=== PATIENT | male | born 1985 | race Caucasian/White ===

== ENCOUNTER → 2017-04-26 | Outpatient (CLI) | payer MEDICAID | LOC: CIMAGING 15:14 | PROVIDERS: ATTEND Family Medicine | DX: M54.5 Low back pain (principal) | CPT/HCPCS: 72100-PO ==

== ENCOUNTER 2018-02-12 23:43 | Emergency (ER) | payer MEDICAID ==
--- NOTE | 2018-02-13 00:48 | EDPHY ---
H & P Stated Complaint: ingrown hair, skin infection Time Seen by Provider: 02/13/18 00:48 HPI/ROS: HPI CHIEF COMPLAINT: [ ] HISTORY OF PRESENT ILLNESS: [Need 4: Location, Duration, Severity, Quality, Context, Timing Modifying Factors, Associated S&S] Past Medical History: Past Surgical History: Social History: Family History: ROS REVIEW OF SYSTEMS: 10 Systems were reviewed and negative with the exception of the elements mentioned in the history of present illness. Exam Constitutional triage nursing summary reviewed, vital signs reviewed, awake/ alert. Eyes normal conjunctivae and sclera, EOMI, PERRLA. HENT normal inspection, atraumatic, moist mucus membranes, no epistaxis, neck supple/ no meningismus, no raccoon eyes. Respiratory clear to auscultation bilaterally, normal breath sounds, no respiratory distress, no wheezing. Cardiovascular rate normal, regular rhythm, no murmur, no edema, distal pulses normal. Gastrointestinal soft, non-tender, no rebound, no guarding, normal bowel sounds, no distension, no pulsatile mass. Genitourinary no CVA tenderness. Musculoskeletal no midline vertebral tenderness, full range of motion, no calf swelling, no tenderness of extremities, no meningismus, good pulses, neurovascularly intact. Skin pink, warm, & dry, no rash, skin atraumatic. Neurologic awake, alert and oriented x 3, AAOx3, moves all 4 extremities equally, motor intact, sensory intact, CN II-XII intact, normal cerebellar, normal vision, normal speech. Psychiatric normal mood/affect. Heme/Lymph/Immune no lymphadenopathy. Differential Diagnosis: Medical Decision Making: Re-evaluation: Source: Patient - Personal History Current Tetanus Diphtheria and Acellular Pertussis (TDAP): Unsure - Medical/Surgical History Hx Asthma: No Hx Chronic Respiratory Disease: No Hx Diabetes: No Hx Cardiac Disease: No Hx Renal Disease: No Hx Cirrhosis: No Hx Alcoholism: No Hx HIV/AIDS: No Hx Splenectomy or Spleen Trauma: No - Social History Smoking Status: Current every day smoker Constitutional: Initial Vital Signs Temperature (C) 36.9 C 02/12/18 23:55 Heart Rate 82 02/12/18 23:55 Respiratory Rate 20 02/12/18 23:55 Blood Pressure 141/69 H 02/12/18 23:55 O2 Sat (%) 98 02/12/18 23:55 Allergies/Adverse Reactions: No Known Allergies Allergy (Unverified 02/12/18 23:54) Home Medications: Medication Instructions Recorded Adderall 10 MG (*) 02/12/18 Suboxone 12 mg-3 mg Sl Film 02/12/18 Departure - Departure Referrals: Derrick Willson DO [Primary Care Provider] - As per Instructions
[2018-02-13] MEDS ORDERED: CEPHALEXIN 500 MG CAP PO ONE (00:54)
--- NOTE | 2018-02-13 00:57 | EDPHY ---
H & P Time Seen by Provider: 02/13/18 00:48 HPI/ROS: CHIEF COMPLAINT: Neck infection HISTORY OF PRESENT ILLNESS: Patient is 30-year-old male here with concern for ingrown here this become affected. He states he has been dealing with this for about 2 months. Yesterday he"dug around and they are"trying to get the ingrown hair out but was unsuccessful. Denies any fever or chills or neck stiffness. He has tried no description antibiotics yet. He has not been evaluated by his physician. He has no history of MRSA. He has no antibiotic allergies. ROS As detailed in HPI Smoking Status: Current every day smoker Physical Exam: General: Alert and oriented. Nontoxic appearing. No acute distress HEENT: Pupils PERRLA. No oral lesions. Cardiopulmonary: Regular rate and rhythm. No lower extremity edema Skin: [place] warm and dry. 2 x 2 cm area of erythema to the underside of the left chin. There is mild erythema but no fluctuance or induration or drainage. Muscle skeletal: Moving all 4 extremities. Equal strength in upper extremities and lower extremities. Ambulatory. Constitutional: Initial Vital Signs Temperature (C) 36.9 C 02/12/18 23:55 Heart Rate 82 02/12/18 23:55 Respiratory Rate 20 02/12/18 23:55 Blood Pressure 141/69 H 02/12/18 23:55 O2 Sat (%) 98 02/12/18 23:55 Allergies/Adverse Reactions: No Known Allergies Allergy (Unverified 02/12/18 23:54) Home Medications: Medication Instructions Recorded Adderall 10 MG (*) 02/12/18 Suboxone 12 mg-3 mg Sl Film 02/12/18 Cephalexin [Keflex (*)] 500 mg PO TID #21 cap 02/13/18 Mupirocin 2% [Bactroban 2%] 22 gm TP BID 7 Days #1 oint 02/13/18 Medical Decision Making ED Course/Re-evaluation: 32-year-old male here with what appears to be folliculitis. Prescribed him Keflex to be taken for the next week along with topical Bactroban. He is agreeable with this plan. No evidence of abscess this time. Departure - Departure Disposition: Home, Routine, Self-Care Clinical Impression: Cellulitis, neck Condition: Good Referrals: Derrick Willson DO [Primary Care Provider] - As per Instructions Prescriptions: Cephalexin [Keflex (*)] 500 mg PO TID #21 cap Mupirocin 2% [Bactroban 2%] 22 gm TP BID 7 Days #1 oint
[2018-02-13 01:08] VITALS: BP 140/95
== END 2018-02-13 01:11 | disposition home or self-care (01) ==
DX: L03.221 Cellulitis of neck (principal)

== ENCOUNTER 2018-08-09 16:44 | Emergency (ER) | payer MEDICAID | END 2018-08-09 18:08 | disposition home or self-care (01) ==